=== PATIENT | male | born 1985 | race Caucasian/White ===

== ENCOUNTER 2022-09-06 08:28 | Emergency (ER) | payer OTHER ==
[~2022-09-06] VITALS: Ht 172.7 cm; Wt 113.4 kg
[2022-09-06 08:28] VITALS: BP 138/90
[2022-09-06] MEDS ORDERED: IBUPROFEN 600MG TAB PO ONE (09:00)
== END 2022-09-06 09:46 | disposition home or self-care (01) ==
LOC: M ED 08:28
DX: S93.401A Sprain of unspecified ligament of right ankle, initial encounter (principal); W01.0XXA Fall on same level from slipping, tripping and stumbling without subsequent striking against object, initial encounter; Y92.009 Unspecified place in unspecified non-institutional (private) residence as the place of occurrence of the external cause